=== PATIENT | female | born 1995 | race Caucasian/White ===

== ENCOUNTER → 2016-05-22 | Outpatient (CLI) | payer BC ==
[~2016-05-22] MED LIST: AMPH10CA3 PO; AZIT500T26 PO; ESCI10TA17 PO; HYDR-5688 PO; LEVOIUD INT UTER; METR-163 PO; OXYC1TAB3 PO
== END | disposition home or self-care (01) ==
LOC: C.RDSM 08:09
PROVIDERS: ATTEND Physical Medicine & Rehabilitation Sports Medicine
DX: S82.864D Nondisplaced Maisonneuve's fracture of right leg, subsequent encounter for closed fracture with routine healing (principal); X58.XXXD Exposure to other specified factors, subsequent encounter

== ENCOUNTER → 2016-05-24 | Day surgery (SDC) | payer BC ==
[2016-05-22 15:39] VITALS: Ht 175.3 cm; Wt 86.4 kg
[~2016-05-24] VITALS: Ht 175.3 cm; Wt 86.4 kg
[~2016-05-24] MED LIST changes: +ATROPINE SULFATE 0.1 MG/ML 5ML SYR IV PRN; +BUPIVACAINE/EPINEPHRINE 0.5% MPF 1:200,000 30 ML VIAL ONE; +CLINDAMYCIN 900MG IV SCH; +EpHEDrine SULFATE INJ 50 MG/ML AMP IV PRN; +FENTANYL CITRATE INJ 50 MCG/1 ML 2 ML VIAL IV PRN; +FENTANYL CITRATE INJ 50 MCG/1 ML 2 ML VIAL ONE; +HYDROCODONE/ACETAMOPHEN 5/325MG TAB ONE; +HYDROCODONE/ACETAMOPHEN 5/325MG TAB PO PRN; +LACTATED RINGER'S 1000ML 1,000 ML IV SCH; +LIDOCAINE HCL 2% 2 ML VIAL (20MG/ML) ONE; +LIDOCAINE/EPINEPHRINE 1% INJ 50 ML VIAL ONE; +MIDAZOLAM HCL 1 MG/ML 2ML VIAL ONE; +MoRPHine SULFATE 2 MG/ML CARP IV PRN; +MoRPHine SULFATE 4 MG/ML 1 ML CARP\\VIAL IV PRN; +ONDANSETRON INJ 2 MG/ML 2 ML VIAL IV PRN; +ONDANSETRON INJ 2 MG/ML 2 ML VIAL ONE; +PROPOFOL IV EMULSION 10 MG/ML 20 ML VIAL IV ONE; +SODIUM CHLORIDE 0.9% 1000ML 1,000 ML IV SCH
--- NOTE | 2016-05-24 06:47 | History & Physical Bridge Note ---
H&P Re-Evaluation Bridge Note: I have examined the patient, reviewed the History & Physical and in the interval since the performance of the History & Physical I have noted the following changes of clinical significance: No changes noted
--- NOTE | 2016-05-24 07:54 | [facility] Post Operative Brief Note ---
Immediate Operative Summary Operative Date May 24, 2016. Pre-Operative Diagnosis Right Ankle Retained Hardware Post-Operative Diagnosis Same Procedure(s) Performed Right Ankle Hardware Removal Surgeon Dr. Damon Vending Machine Servicer Surgeon(s) Dr. Yossi Rosas Estimated Blood Loss 1 ML Findings 2 screws medial malleolus Specimens None Drains 0 Anesthesia local with IV sedation Complication(s) None Disposition Recovery Room / PACU
--- NOTE | 2016-05-24 08:05 | Discharge Instructions-SurgCtr ---
Discharge Instructions Visit Reason for Visit: Right Ankle Retained Hardware Discharge Discharge Diagnosis / Problem: Hardware removal right ankle Discharge Goals Goal(s): Decrease discomfort, Improve function, Increase independence Activity Recommendations Activity Limitations: per Instructions/Follow-up section Anesthesia . Post Anesthesia Instructions: If you have had General Anesthesia or IV Sedation: * Do not drive today. * Resume driving when surgeon permits. * Do not make important decisions or sign legal documents today. * Call surgeon for: 1. Temperature elevations greater than 101 degrees F. 2. Uncontrollable pain. 3. Excessive bleeding. 4. Persistent nausea and vomiting. 5. Medication intolerance (nausea, vomiting or rash). * For nausea and vomiting use only clear liquids such as: tea, soda, bouillon until nausea subsides, then gradually increase diet as tolerated. * If you have any concerns or questions, call your surgeon's office. If physician is unavailable and it is an emergency, call 911 or go to the nearest emergency room. . Instructions / Follow-Up Instructions / Follow-Up POST-OPERATIVE INSTRUCTIONS DIET: - Resume previous diet. MEDICATIONS: - Please take your prescriptions as instructed at your pre-op appointment and/ or see medication discharge instructions listed. - If concerns develop, call your physician's office at . WOUND CARE : - Keep dressing clean, dry, intact. - Your surgical extremity may be discolored due to prepping agents used on the skin. A bluish-green tint is a normal variant and should not cause alarm. - You may remove the Operative Dressing on Post-Op day #2 - Apply Band-Aide to the wounds. Please do not use Bacitracin or other ointments under the bandage. The [place] is to be used to help control swelling after the dressing is removed. - You may shower on Post-Op day #3. Cover your wound with band-aids or plastic wrap. - Continue with Cam boot. EXERCISES: - Keep your foot elevated above your heart for the next 48 to 72 hours. - Weight bearing as tolerated with boot. - Please preform the following exercises 2-3 times daily: - Isometric Quadriceps Strengthening - Straight Leg Raises - Wiggle toes POST-OP: - Pre-op or enclosed a prescription for you to use post-operatively: - Franklin, a strong narcotic, is to be used only on an "as needed basis for pain. Use the pain medication the first night prior to going to bed , in order to ease any pain you have when the nerve block wears off. - If you have any adverse effects with the medications, please call our office. - If you develop a fever (101.5), Redness or Drainage from the surgical incision site, please call the office to arrange for an evaluation. - You may experience some low back pain due to muscle spasm from the either the anesthesia or positioning. If so, apply heating pad to area and take an analgesic if you have not already done so. - Do not drive a car or operate heavy machinery. FOLLOW-UP VISIT: - Follow up with Dr. Damon on 06/06/2016 at 12.45 pm. Call your doctor at [phone] if: - Temperature above 101 degrees - Pain not relieved by pain medicine ordered - There is increased drainage or redness from any incision - You have any unanswered questions, problems or concerns. Procedures Procedures Performed: Right Ankle Hardware Removal Pending Studies Studies pending at discharge: no Medical Emergencies . Who to Call and When: Medical Emergencies: If at any time you feel your situation is an emergency, please call 911 immediately. . Non-Emergent Contact Non-Emergency issues call your: Surgeon Call Non-Emergent contact if: you have a fever, your pain is not controlled, wound has increased drainage . . "Provider Documentation" section prepared by Jerel Rosas.
--- NOTE | 2016-05-24 08:08 | [facility] Post Operative Brief Note ---
Immediate Operative Summary Operative Date May 24, 2016. Pre-Operative Diagnosis Right Ankle Retained Hardware Post-Operative Diagnosis Same Procedure(s) Performed Right Ankle Hardware Removal Surgeon Dr. Damon Managing Partner [employer] Surgeon(s) Dr. Yossi Rosas Estimated Blood Loss 1 ML Findings 2 Medial malleolus cannulated screws Specimens None Complication(s) None Disposition PCU
--- NOTE | 2016-05-24 08:13 | OPERATIVE REPORT ---
DATE OF OPERATION: 05/24/2016 PREOPERATIVE DIAGNOSIS: Retained hardware right ankle status post open reduction internal fixation of an ankle fracture. POSTOPERATIVE DIAGNOSIS: Same. PROCEDURE: Removal of deep hardware, medial malleolus, right ankle. SURGEON: Armando Damon MD COMPOSITION WEATHERBOARD APPLIER: Jerel Joshi fellow. No PA available. ANESTHESIA: Local with IV sedation. INDICATIONS OF PROCEDURE: The patient is a 21-year-old female 1 year status post ORIF of a right ankle fracture. She previously had her syndesmotic screws removed and now would like to have her medial malleolar screws removed due to ongoing aching in the ankle. Radiographs showed no obvious problems in terms of arthritis, OCD lesion, syndesmotic or fracture healing. PROCEDURE IN DETAIL: Informed consent was obtained. The patient was identified as Julia Collier. She identified the operative site as the right ankle medial malleolus. I marked it with my initials. A preop surgical time out was performed. A preop dose of IV antibiotics was given. She was taken to the operating room, positioned supine on the operating room table. IV sedation was administered along with local anesthetic, approximately 10 mL of a 50:50 mixture of 1% lidocaine and 0.5% Marcaine, both containing epinephrine into the area of the surgical incision over the medial malleolus. A tourniquet was applied to the right calf below the peroneal nerve at the fibular neck, but not inflated during the case. The right leg was then prepped and draped in the usual sterile fashion. DVT prophylaxis is not indicated. The examination under anesthesia revealed no swelling, full range of motion. The lower 2-3 cm of the prior medial incision was opened with a knife and blunt dissection was performed down to the subcutaneous tissue and scar tissue. Electrocautery was used as needed to control bleeding. Fluoroscopic guidance was utilized throughout the procedure. The posterior tibial tendon was identified. After it had been identified, the posterior screw was identified and removed. Following that, further dissection anteriorly under fluoroscopic guidance showed the anterior screw. Guide pins were inserted to gauge orientation. The hex lean six sigma black belt of the screw was cleaned of soft tissue, screw driver/sales workers head was fully engaged, and the screw was then removed without difficulty. AP and lateral fluoroscopic images documented removal of the hardware and otherwise an unremarkable appearance to the ankle. The wound was copiously irrigated with sterile saline and then closed at the level of skin with 3-0 Prolene horizontal mattress stitches. A soft sterile dressing was applied along with a fracture. The patient was awakened from anesthesia without difficulty and taken to recovery room in stable condition. There were no specimens or complications. Counts were correct at the end of case. Blood loss was minimal. At the conclusion of the operation, I spoke to patient's mother and informed her of my findings. Postoperative instructions were given. She can weightbear as tolerated and the patient was given her hardware. I attest to the content of the Intraoperative Record and any orders documented therein. Any exceptio ns are noted below.
[2016-05-24 08:39] VITALS: BP 99/64; PULSE 57; TEMP 36.4; O2SAT 96
--- NOTE | 2016-05-24 08:50 | Anesthesiology Progress Note ---
Anesthesia Post Op Note Date & Time May 24, 2016 at 08:49 Vital Signs Pain Intensity: 7.0 Vital Signs Past 12 Hours Date Time Temp Pulse Resp B/P Pulse Ox O2 Delivery O2 Flow Rate FiO2 05/24/16 08:05 36.3 63 16 98/65 98 Room Air 05/24/16 06:28 36.5 79 16 114/77 97 Room Air Notes Mental Status: alert / awake / arousable, participated in evaluation Pt Amnestic to Procedure: Yes Nausea / Vomiting: adequately controlled Pain: adequately controlled Airway Patency, RR, SpO2: stable & adequate BP & HR: stable & adequate Hydration State: stable & adequate Anesthetic Complications: no major complications apparent
== END | disposition home or self-care (01) ==
LOC: X.SURG 06:19
PROVIDERS: ATTEND Physical Medicine & Rehabilitation Sports Medicine
DX: T84.84XA Pain due to internal orthopedic prosthetic devices, implants and grafts, initial encounter (principal); Y79.2 Prosthetic and other implants, materials and accessory orthopedic devices associated with adverse incidents

== ENCOUNTER 2016-07-09 18:07 | Emergency (ER) | payer BC, OTHER ==
[~2016-07-09] VITALS: Ht 175.3 cm; Wt 95.3 kg
[~2016-07-09 18:07] MED LIST changes: -ATROPINE SULFATE 0.1 MG/ML 5ML SYR IV PRN; -AZIT500T26 PO; -BUPIVACAINE/EPINEPHRINE 0.5% MPF 1:200,000 30 ML VIAL ONE; -CLINDAMYCIN 900MG IV SCH; -EpHEDrine SULFATE INJ 50 MG/ML AMP IV PRN; -FENTANYL CITRATE INJ 50 MCG/1 ML 2 ML VIAL IV PRN; -FENTANYL CITRATE INJ 50 MCG/1 ML 2 ML VIAL ONE; -HYDROCODONE/ACETAMOPHEN 5/325MG TAB ONE; -HYDROCODONE/ACETAMOPHEN 5/325MG TAB PO PRN; -LACTATED RINGER'S 1000ML 1,000 ML IV SCH; -LIDOCAINE HCL 2% 2 ML VIAL (20MG/ML) ONE; -LIDOCAINE/EPINEPHRINE 1% INJ 50 ML VIAL ONE; -METR-163 PO; -MIDAZOLAM HCL 1 MG/ML 2ML VIAL ONE; -MoRPHine SULFATE 2 MG/ML CARP IV PRN; -MoRPHine SULFATE 4 MG/ML 1 ML CARP\\VIAL IV PRN; -ONDANSETRON INJ 2 MG/ML 2 ML VIAL IV PRN; -ONDANSETRON INJ 2 MG/ML 2 ML VIAL ONE; -OXYC1TAB3 PO; -PROPOFOL IV EMULSION 10 MG/ML 20 ML VIAL IV ONE; -SODIUM CHLORIDE 0.9% 1000ML 1,000 ML IV SCH
[2016-07-09 18:11] VITALS: Ht 175.3 cm; Wt 95.3 kg
[2016-07-09] MEDS ORDERED: KETOROLAC TROMETHAMINE 30 MG/ML VIAL IV STA (18:21)
[2016-07-09] MEDS ORDERED: SODIUM CHLORIDE 0.9% 1000ML 1,000 ML IV STA (18:21)
[2016-07-09] MEDS ORDERED: ONDANSETRON INJ 2 MG/ML 2 ML VIAL IV STA (18:21)
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
[2016-07-09] MEDS ORDERED: METR-163 PO (18:41)
[2016-07-09 18:53] LABS: URINE APPEARANCE CLEAR (CLEAR); URINE BILIRUBIN NEG (NEG); URINE COLOR YELLOW; URINE EPITHELIAL CELL AUTO >30 /lpf (0-5); URINE NITRITE NEG (NEG); URINE PH 6.5 (4.5-7.5); URINE SPECIFIC GRAVITY 1.009 (1.000-1.030); UROBILINOGEN NEG (NEG)
[2016-07-09 18:55] LABS: BASO % 0.1 %; BASO ABS # 0.01 K/uL (0-0.2); COMPLETE YES; EOS % 0.7 %; HEMATOCRIT 39.4 % (37-47); IG% 0.2 %; LYMPH % 15.8 %; LYMPH ABS # 1.55 K/uL (1.2-3.4); MEAN CELL VOLUME 88.9 fL (80-100); MEAN CORPUSCULAR HEMOGLOBIN 30.7 pg (25-34); MEAN CORPUSCULAR HGB CONC 34.5 g/dl (32-36); MEAN PLATELET VOLUME 10.4 fL (7.4-10.4); MONO % 6.7 %; NEUT % 76.5 %; PLATELET COUNT 176 K/uL (130-400); RED BLOOD COUNT 4.43 M/uL (4.2-5.4); WHITE BLOOD COUNT 9.79 K/uL (4.8-10.8)
[2016-07-09 18:58] LABS: MANUAL MICROSCOPIC REQUIRED? NO; REVIEW REQ? NO
--- NOTE | 2016-07-09 19:05 | DIAGNOSTIC IMAGING REPORT ---
CT SCAN OF THE BRAIN WITHOUT IV CONTRAST CLINICAL HISTORY: Headache. COMPARISON STUDY: CT of the brain dated 09/05/2015. TECHNIQUE: Unenhanced axial CT scan of the brain is performed from the vertex to the skull base. Automated dose control exposure was utilized. CT DOSE: 537.48 mGy.cm FINDINGS: Brain parenchyma: The brain parenchyma is normal in appearance. There is no hemorrhage, mass effect, or evidence of acute territorial ischemia by CT criteria. Brunner-white matter is preserved. No extra-axial fluid collection is seen. Ventricles, sulci, cisterns: Normal in configuration. Intracranial vasculature: The visualized intracranial vasculature at the skull base is normal in appearance. Calvarium: Unremarkable. Sinuses and mastoids: Moderate mucosal thickening is seen in the sphenoid sinuses. Mild to moderate mucosal thickening is noted in the right posterior ethmoid sinuses. The mastoid air cells are well pneumatized. There is prominence of adenoidal soft tissues. Orbits: The bony orbits are grossly intact. IMPRESSION: 1. No acute intracranial abnormality. 2. There are prominent adenoidal soft tissues. Correlation with direct visualization is recommended. Electronically signed by: Lj Briseno M.D. 07/09/2016 7:03 PM Dictated Date/Time: 07/09/2016 7:01 PM
[2016-07-09 19:12] LABS: ALT/SGPT 20 U/L (12-78); AST/SGOT 6 U/L (15-37); BLOOD UREA NITROGEN 12 mg/dl (7-18); BUN/CREATININE RATIO 13.9 (10-20); CALCIUM 9.1 mg/dl (8.5-10.1); CARBON DIOXIDE 26 mmol/L (21-32); CHLORIDE 106 mmol/L (98-107); CREATININE 0.86 mg/dl (0.60-1.20); GLUCOSE 101 mg/dl (70-99); POTASSIUM 3.8 mmol/L (3.5-5.1); SODIUM 142 mmol/L (136-145)
[2016-07-09 19:15] LABS: ALKALINE PHOSPHATASE 56 U/L (45-117); C-REACTIVE PROTEIN 0.65 mg/dl (0-0.29)
--- NOTE | 2016-07-09 19:31 | DIAGNOSTIC IMAGING REPORT ---
TWO VIEW CHEST CLINICAL HISTORY: Fever. FINDINGS: PA and lateral chest radiographs are compared to study dated 03/08/2014. The cardiomediastinal silhouette is unremarkable. The lungs and pleural spaces are clear. There is no pneumothorax. The bony thorax appears intact. IMPRESSION: No active disease in the chest. Electronically signed by: Lj Briseno M.D. 07/09/2016 7:29 PM Dictated Date/Time: 07/09/2016 7:29 PM
--- NOTE | 2016-07-09 19:32 | DIAGNOSTIC IMAGING REPORT ---
SOFT TISSUES NECK 2 VIEWS CLINICAL HISTORY: Sore throat. FINDINGS: AP and lateral views of the soft tissues the neck are correlated with CT scan of the cervical spine dated 09/05/2015. The soft tissues of the neck are normal in appearance. The airway is widely patent. The prevertebral/retropharyngeal soft tissues are within normal limits. The epiglottic shadow is normal. No radiodense foreign body is identified. The cervical spine is normal as imaged. Partially imaged apical lung parenchyma appears clear. IMPRESSION: Unremarkable radiographic assessment of the soft tissues of the neck. Electronically signed by: Lj Briseno M.D. 07/09/2016 7:31 PM Dictated Date/Time: 07/09/2016 7:30 PM
[2016-07-09 19:33] LABS: PREG INTERNAL NEGATIVE QC NEG CLEAR BACKGROUND; PREG INTERNAL POSITIVE QC POS CONTROL LINE
[2016-07-09] MEDS ORDERED: CEFTRIAXONE SOD INJ 1 GM ADDVIAL IV STA (19:36)
[2016-07-09] MEDS ORDERED: MoRPHine SULFATE 4 MG/ML 1 ML CARP\\VIAL IV PRN (19:45)
[2016-07-09] MEDS ORDERED: DEXAMETHASONE SOD INJ 10 MG/ML VIAL IV ONE (19:45)
[2016-07-09] MEDS ORDERED: OXYC1TAB3 PO (20:06)
[2016-07-09] MEDS ORDERED: AZIT500T26 PO (20:06)
[2016-07-09 20:16] VITALS: BP 132/82; PULSE 71; O2SAT 100
[2016-07-09 20:33] VITALS: TEMP 36.8
== END 2016-07-09 20:33 | disposition home or self-care (01) ==
LOC: C.EDB 18:08 → C.EDA 20:33
DX: R50.9 Fever, unspecified (principal); J03.90 Acute tonsillitis, unspecified; R51 Headache; F90.0 Attention-deficit hyperactivity disorder, predominantly inattentive type

== ENCOUNTER → 2016-08-03 | Outpatient (CLI) | payer OTHER ==
[~2016-08-03] MED LIST changes: +AZIT500T26 PO; -HYDR-5688 PO; +METR-163 PO; +OXYC1TAB3 PO
== END | disposition home or self-care (01) ==
LOC: C.LAB 02:11
DX: Z02.83 Encounter for blood-alcohol and blood-drug test (principal)

== ENCOUNTER → 2016-11-20 | Outpatient (CLI) | payer BC, OTHER ==
--- NOTE | 2016-11-20 09:49 | DIAGNOSTIC IMAGING REPORT ---
LEFT SHOULDER MIN 2 VIEWS CLINICAL HISTORY: LEFT SHOULDER PAIN pain COMPARISON: None. DISCUSSION: The bones and joint spaces appear intact. There is no evidence of fracture, dislocation or bony disease. There is no evidence for soft tissue swelling. IMPRESSION: Negative study. The above report was generated using voice recognition software. It may contain grammatical, syntax or spelling errors. Electronically signed by: Tal Flynn M.D. 11/20/2016 9:48 AM Dictated Date/Time: 11/20/2016 9:47 AM
== END | disposition home or self-care (01) ==
LOC: C.RDSM 09:34
PROVIDERS: ATTEND Physician Assistant
DX: R52 Pain, unspecified (principal)

== ENCOUNTER 2017-02-11 03:26 | Emergency (ER) | payer BC ==
[~2017-02-11] VITALS: Ht 175.3 cm; Wt 96.5 kg
[~2017-02-11 03:26] MED LIST changes: -AZIT500T26 PO; -OXYC1TAB3 PO
[2017-02-11 03:30] VITALS: TEMP 36.9; Ht 175.3 cm; Wt 96.5 kg
[2017-02-11] MEDS ORDERED: ONDANSETRON INJ 2 MG/ML 2 ML VIAL IV STA (03:45)
[2017-02-11] MEDS ORDERED: SODIUM CHLORIDE 0.9% 1000ML 1,000 ML IV ONE (03:45)
[2017-02-11] MEDS ORDERED: KETOROLAC TROMETHAMINE 30 MG/ML VIAL IV STA (03:45)
[2017-02-11 03:56] LABS: BASO % 0.3 %; BASO ABS # 0.02 K/uL (0-0.2); COMPLETE YES; EOS % 2.6 %; HEMATOCRIT 41.3 % (37-47); IG% 0.2 %; LYMPH % 48.4 %; LYMPH ABS # 2.96 K/uL (1.2-3.4); MEAN CELL VOLUME 87.9 fL (80-100); MEAN CORPUSCULAR HEMOGLOBIN 30.2 pg (25-34); MEAN CORPUSCULAR HGB CONC 34.4 g/dl (32-36); MEAN PLATELET VOLUME 10.1 fL (7.4-10.4); NEUT % 41.5 %; PLATELET COUNT 183 K/uL (130-400); WHITE BLOOD COUNT 6.11 K/uL (4.8-10.8)
[2017-02-11] MEDS ORDERED: DiphenhydrAMINE HCL 50 MG/ML VIAL IV STA (04:04)
[2017-02-11] MEDS ORDERED: DiphenhydrAMINE HCL 50 MG/ML VIAL ONE (04:05)
[2017-02-11 04:13] LABS: BUN/CREATININE RATIO 10.9 (10-20); CALCIUM 8.9 mg/dl (8.5-10.1); CREATININE 0.89 mg/dl (0.60-1.20); POTASSIUM 3.4 mmol/L (3.5-5.1)
[2017-02-11 04:16] LABS: ALB/GLOB RATIO 1.3 (0.9-2)
[2017-02-11 04:28] LABS: URINE APPEARANCE CLOUDY (CLEAR); URINE BILIRUBIN NEG (NEG); URINE COLOR YELLOW; URINE EPITHELIAL CELL AUTO >30 /lpf (0-5); URINE NITRITE NEG (NEG); URINE SPECIFIC GRAVITY 1.028 (1.000-1.030); UROBILINOGEN NEG (NEG); ZZUR CULT IF INDIC CLEAN CATCH NO
[2017-02-11 04:31] LABS: MANUAL MICROSCOPIC REQUIRED? NO; REVIEW REQ? YES
[2017-02-11 04:56] LABS: BENZODIAZEPINE, URINE NEG (NEG); COCAINE,URINE NEG (NEG); PHENCYCLIDINE, URINE NEG (NEG)
[2017-02-11 05:32] VITALS: BP 116/67; PULSE 53; O2SAT 97
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
== END 2017-02-11 05:27 | disposition home or self-care (01) ==
LOC: C.EDB 03:27 → C.EDA 05:27
DX: R10.30 Lower abdominal pain, unspecified (principal); F12.90 Cannabis use, unspecified, uncomplicated; Z97.5 Presence of (intrauterine) contraceptive device; F90.9 Attention-deficit hyperactivity disorder, unspecified type; F32.9 Major depressive disorder, single episode, unspecified; Z83.3 Family history of diabetes mellitus; Z80.9 Family history of malignant neoplasm, unspecified; Z79.899 Other long term (current) drug therapy

== ENCOUNTER → 2017-02-27 | Outpatient (CLI) | payer BC ==
[~2017-02-27] MED LIST changes: -METR-163 PO
--- NOTE | 2017-02-27 11:59 | DIAGNOSTIC IMAGING REPORT ---
EXAMINATION: PELVIC ULTRASOUND (transabdominal and endovaginal scanning) CLINICAL HISTORY: PELVIC PAIN COMPARISON STUDY: 04/05/2016 FINDINGS: The uterus measured 6.4 x 2.2 x 3.9 cm. And IUD is visualized within the uterine cavity.. The endometrial stripe measured 4 mm. The right ovary measured 29 x 14 x 29 mm. There is a dominant 15 mm follicle. The left ovary measured 28 x 8 x 17 mm.. There is no ultrasonographic evidence of ovarian torsion. It should be noted that ovarian torsion can be present with normal Doppler ultrasonographic findings. There was no evidence of pathologic free pelvic fluid. IMPRESSION: 1. An IUD is visualized within the endometrium 2. Normal pelvic ultrasound Electronically signed by: Myron Varela M.D. 02/27/2017 11:58 AM Dictated Date/Time: 02/27/2017 11:56 AM
== END | disposition home or self-care (01) ==
LOC: C.ULTRBC 10:53
PROVIDERS: ATTEND Family Medicine
DX: R10.2 Pelvic and perineal pain (principal); Z97.5 Presence of (intrauterine) contraceptive device

== ENCOUNTER 2018-05-07 15:19 | Inpatient (IN) ==
[2018-05-07 16:58] LABS: Appearance Urine Clear (Clear); Bacteria Urine Automated Negative (Negative); Bilirubin Urine Negative (Negative); Color Urine Yellow; Epithelial Cell Urine Auto >30 /lpf (0-5); Glucose Urine UA Negative (Negative); Ketones Urine Negative (Negative); Leukocyte Esterase Urine Negative (Negative); Nitrite Urine Negative (Negative); Protein Urine Negative (Negative); Specific Gravity Urine 1.012 (1.000-1.030); Urobilinogen Urine Negative (Negative)
[2018-05-07 17:19] LABS: Amphetamines+Metham, Urine Neg (Neg); Barbiturates, Urine Neg (Neg); Benzodiazepine, Urine Neg (Neg); Cocaine, Urine Neg (Neg); MDMA (Ecstacy), Urine Pos (Neg); Methadone, Urine Neg (Neg); Opiate, Urine Neg (Neg); Phencyclidine, Urine Neg (Neg)
[2018-05-07 17:44] LABS: Basophils # (auto) 0.01 K/uL (0-0.2); Basophils % (auto) 0.2 %; Eosinophils # (auto) 0.04 K/uL (0-0.5); Eosinophils % (auto) 0.8 %; Hematocrit (blood only) 39.1 % (37-47); Hemoglobin 13.6 g/dL (12.0-16.0); Immature Granulocytes # (auto) 0.01 K/uL (0.00-0.02); Immature Granulocytes % (auto) 0.2 %; Lymphocytes % (auto) 19.4 %; Mean Corpuscular Hgb Conc 34.8 g/dL (32-36); Mean Corpuscular Volume 89.9 fL (80-100); Mean Platelet Volume 10.1 fL (7.4-10.4); Monocytes # (auto) 0.36 K/uL (0.11-0.59); Neutrophils # (auto) 3.73 K/uL (1.4-6.5); Neutrophils % (auto) 72.4 %; Platelet Count 173 K/uL (130-400); RDW Coefficient of Variation 12.7 % (11.5-14.5); RDW Standard Deviation 41.5 fL (36.4-46.3); Red Blood Count 4.35 M/uL (4.2-5.4); White Blood Count 5.15 K/uL (4.8-10.8)
[2018-05-07 17:56] LABS: Albumin Level 3.9 gm/dl (3.4-5.0); BUN Creatinine Ratio 11.1 (10-20); Calcium 8.7 mg/dl (8.5-10.1); Creatinine Clr Calc Pharmacy 113.5 ml/min; Est GFR (African American) 96.6; Est GFR (Non-African American) 83.4; Potassium 3.6 mmol/L (3.5-5.1)
[2018-05-07 18:02] LABS: Acetaminophen < 2 ug/ml (10-30); Salicylate < 1.7 mg/dl (2.8-20)
[2018-05-07 18:07] LABS: Albumin Globulin Ratio 1.2 (0.9-2); Bilirubin,Total 0.4 mg/dl (0.2-1); Globulin 3.3 gm/dl (2.5-4.0); Total Protein 7.2 gm/dl (6.4-8.2)
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
[2018-05-07] MEDS ORDERED: SODIUM CHLORIDE 0.65% NA SOLN 45 ML (OCEAN) PRN (20:20)
[2018-05-07] MEDS ORDERED: BISMUTH SUBSALICYLATE PER ML OMNICELL CHARGE PO PRN (20:20)
[2018-05-07] MEDS ORDERED: ALUMINUM/MAGNESIUM SUSP 30 ML UDC PO PRN (20:20)
[2018-05-07] MEDS ORDERED: MAGNESIUM HYDROXIDE SUSP 30 ML UDC PO PRN (20:20)
[2018-05-07] MEDS ORDERED: ACETAMINOPHEN 325 MG TAB PO PRN (20:20)
[2018-05-07 22:20] VITALS: O2SAT 98
[2018-05-08] MEDS ORDERED: INFLUENZA ADMINISTRATION CHARGE ONE (08:00)
[2018-05-08] MEDS ORDERED: INFLUENZA VIRUS QUAD VACCINE 0.5 ML SYR IM ONE (08:00)
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
[2018-05-08] MEDS: ESCITALOPRAM OXALATE 10 MG TAB PO SCH (11:03)
[2018-05-09] MEDS: ESCITALOPRAM OXALATE 10 MG TAB PO SCH (08:53)
--- NOTE | 2018-05-09 11:09 | Psychiatric Progress Note ---
Date of Service May 09, 2018 Impression / Recommendations Impression 23 yo CF with reported h/o depression and anxiety admitted for voluntarily after reported attempt with OD on Ambien. This is in the context of non- compliance with medications, relational strain with mother and school stressors. Patient seems to be with mild improvement in mood today and has been active on unit and group. Seems to be working on coping skills as she admits taking pills was an attempt at her life. Will set up family meeting tomorrow. Will continue treatment for stabilization. 05/09/18: mild improved mood. Family meeting schedule for Saturday05/10/18. Increase Lexapro to 20mg with first dose on 05/10/18. Patient denies Si/Hi/aVH (1) Major depression, single episode: - Increase Lexapro to 20mg daily for depression -Group milieu therapy Inventory Assets Strengths: fair insight, future oriented Needs: medications and therapy Risk Factors Assessment Male: No : Yes Do You Have Access To A Gun?: No Health Problems: No Mental Health Diagnoses: Yes Substance Use Disorders: No Previous Attempt: No Family History of Suicide: No Previous Psychiatric Hospitalization: No Hopelessness: No Smoker: No Protective Factors Assessment Hoahaoism Beliefs: No : No Responsible for Young Children: No Employed: No Stable Relationships: Yes Supportive Family: Yes Absence of Any Risk Factors Above: Yes (no current SI, not homeless, access to care) Review of Systems Sleep Information Total Hours of Sleep: 6.25 Sleep Comments: requested and received vistaril X2. Meal Information Percent Meal Consumed - Breakfast: 70 Percent Meal Consumed - Lunch: 100 Percent Meal Consumed - Dinner: 100 Subjective Subjective Patient reports she has accepted that she did have SI when she took the pills and states this has allowed to to process her feelings and depression. Reports her mood is "better today". States her parents brought her clothes yesterday and will visit again today. States they will have a family meeting on Saturday. Reports desire to improve relations with mom and find better ways to cope with stressors. Reports groups have helped. Denies SI/HI/AVH and reports regret for her actions. Patient was seen & assessed and interval progress reviewed with Treatment Team and Nursing. Physical Exam Psychiatric A+Ox3, euthymic affect Apperance: appropriately dressed Eye Contact: good eye contact Motor Behavior: no abnormal motor movements Speech: normal rate/rhythm/volume of speech Affect: euthymic affect Mood: no depressed mood Thought Process: linear/logical thought process Thought Content: not paranoid and no delusions Suicidal Thoughts: denies suicidal thoughts Homicidal Thoughts: denies homicidal thoughts Hallucinations: no auditory hallucinations and no visual hallucinations Cognition: recent memory grossly intact and remote memory grossly intact Estimated Intelligence: average estimated intelligence Insight: + fair insight Judgement: + fair judgement Vital Signs (Past 24 Hours) Last Vital Signs Temp 36.9 C 05/09/18 06:00 Pulse 73 05/09/18 06:00 Resp 16 05/09/18 06:00 BP 98/66 L 05/09/18 06:00 Pulse Ox 98 05/07/18 22:11 Results & Data Current Inpatient Medications Current Inpatient Medications: Current Inpatient Medications Acetaminophen (Tylenol) 650 mg PO Q4H PRN PRN Reason: Headache or Minor Fever Stop: 06/06/18 20:19 Al Hydrox/Mg Hydrox/Simethicone (Maalox) 30 ml PO Q4H PRN PRN Reason: GI Upset Stop: 06/06/18 20:19 Bismuth Subsalicylate (Kaopectate) 15 ml PO PRN PRN PRN Reason: Loose Stool Stop: 06/06/18 20:19 Escitalopram Oxalate (Lexapro) 20 mg PO QAM GIOVANNA Stop: 06/09/18 08:59 Hydroxyzine HCl (Vistaril) 25 mg PO Q4H PRN PRN Reason: Anxiety Stop: 06/06/18 20:19 Hydroxyzine HCl (Vistaril) 50 mg PO HSZ PRN PRN Reason: Insomnia Stop: 06/06/18 20:19 Last Admin: 05/08/18 21:52 Dose: 50 mg Magnesium Hydroxide (Milk Of Magnesia) 30 ml PO DAILY PRN PRN Reason: Heartburn Stop: 06/06/18 20:19 Sodium Chloride ([place] Nasal) 1 - 2 sprays NA PRN PRN PRN Reason: Nasal Dryness/Congestion Stop: 06/06/18 20:19 Post Discharge Appointments Primary Care Physician Name Of Family Doctor: Dr Judith Lloyd - [facility] Primary Care Provider Appointment Comment: [phone], [place] [address] Psychiatrist Name of Psychiatrist: Lila Johns Psychiatrist's Date of Appointment with Psychiatrist: 05/16/18 Time of Appointment with Psychiatrist: 3:30pm - come 15min early, bring insurance card Psychiatric Appointment Comment: [address] [place] [address] Therapist Name of Therapist: [facility] - Lisa Esteves Therapist's Date of Therapist Appointment: 05/14/18 Time of Therapist Appointment: 3om - come 15min early with insurance card Therapy Appointment Comment: [address] [facility] [address], [place] [address] Prep Person Name of Prep Person: Kristen Contact Information Discharge Discharge Address: [address] [place] [address], [place] [address] CPT Code CPT Code 77887 _ (1) Major depression, single episode Active/Remission status: currently active Major depression episode severity: severe Psychotic features: without psychotic features Qualified Code(s): F32.2 - Major depressive disorder, single episode, severe without psychotic features
[2018-05-10 06:48] VITALS: BP 114/78; TEMP 98.2
--- NOTE | 2018-05-10 07:20 | Psychiatric Progress Note ---
Date of Service May 10, 2018 Impression / Recommendations Impression 23 yo CF with reported h/o depression and anxiety admitted for voluntarily after reported attempt with OD on Ambien. This is in the context of non- compliance with medications, relational strain with mother and school stressors. Patient seems to be with mild improvement in mood today and has been active on unit and group. Seems to be working on coping skills as she admits taking pills was an attempt at her life. Will set up family meeting tomorrow. Will continue treatment for stabilization. 05/09/18: mild improved mood. Family meeting schedule for Saturday05/10/18. Increase Lexapro to 20mg with first dose on 05/10/18. Patient denies Si/Hi/aVH (1) Major depression, single episode: - Increase Lexapro to 20mg daily for depression -Group milieu therapy Inventory Assets Strengths: fair insight, future oriented Needs: medications and therapy Risk Factors Assessment Male: No : Yes Do You Have Access To A Gun?: No Health Problems: No Mental Health Diagnoses: Yes Substance Use Disorders: No Previous Attempt: No Family History of Suicide: No Previous Psychiatric Hospitalization: No Hopelessness: No Smoker: No Protective Factors Assessment Jehovah'S Witness Beliefs: No : No Responsible for Young Children: No Employed: No Stable Relationships: Yes Supportive Family: Yes Absence of Any Risk Factors Above: Yes (no current SI, not homeless, access to care) Interval History Chief Complaint "[]". Review of Systems Sleep Information Total Hours of Sleep: 6.75 Sleep Comments: received a prn hs dose of vistaril Meal Information Percent Meal Consumed - Breakfast: 70 Percent Meal Consumed - Lunch: 30 Percent Meal Consumed - Dinner: 85 Subjective Subjective Patient was seen & assessed and interval progress reviewed with Nursing. Staff report she is very anxious about her family meeting with parents today, Physical Exam Vital Signs (Past 24 Hours) Last Vital Signs Temp 36.8 C 05/10/18 06:47 Pulse 97 H 05/10/18 06:48 Resp 16 05/10/18 06:47 BP 114/78 05/10/18 06:48 Pulse Ox 98 05/07/18 22:11 Results & Data Current Inpatient Medications Current Inpatient Medications: Current Inpatient Medications Acetaminophen (Tylenol) 650 mg PO Q4H PRN PRN Reason: Headache or Minor Fever Stop: 06/06/18 20:19 Al Hydrox/Mg Hydrox/Simethicone (Maalox) 30 ml PO Q4H PRN PRN Reason: GI Upset Stop: 06/06/18 20:19 Bismuth Subsalicylate (Kaopectate) 15 ml PO PRN PRN PRN Reason: Loose Stool Stop: 06/06/18 20:19 Escitalopram Oxalate (Lexapro) 20 mg PO QAM GIOVANNA Stop: 06/09/18 08:59 Hydroxyzine HCl (Vistaril) 25 mg PO Q4H PRN PRN Reason: Anxiety Stop: 06/06/18 20:19 Hydroxyzine HCl (Vistaril) 50 mg PO HSZ PRN PRN Reason: Insomnia Stop: 06/06/18 20:19 Last Admin: 05/09/18 21:24 Dose: 50 mg Magnesium Hydroxide (Milk Of Magnesia) 30 ml PO DAILY PRN PRN Reason: Heartburn Stop: 06/06/18 20:19 Sodium Chloride (Leona Nasal) 1 - 2 sprays NA PRN PRN PRN Reason: Nasal Dryness/Congestion Stop: 06/06/18 20:19 Post Discharge Appointments Primary Care Physician Name Of Family Doctor: Dr Judith Lloyd - [facility] Primary Care Provider Appointment Comment: [id number], [place] [address] Psychiatrist Name of Psychiatrist: Lila Johns Psychiatrist's Date of Appointment with Psychiatrist: 05/16/18 Time of Appointment with Psychiatrist: 3:30pm - come 15min early, bring insurance card Psychiatric Appointment Comment: [address] [place] [address] Therapist Name of Therapist: [facility] - Lisa Esteves Therapist's Date of Therapist Appointment: 05/14/18 Time of Therapist Appointment: 3om - come 15min early with insurance card Therapy Appointment Comment: [address] [place] [address] Helicopter Officer Name of Helicopter Officer: Denies Contact Information Discharge Discharge Address: [address] [place] [address] [place] [id number] CPT Code CPT Code 15821 [id number] _ (1) Major depression, single episode Active/Remission status: currently active Major depression episode severity: severe Psychotic features: without psychotic features Qualified Code(s): F32.2 - Major depressive disorder, single episode, severe without psychotic features
[2018-05-10] MEDS ORDERED: ESCITALOPRAM OXALATE 20 MG TAB PO SCH (09:00)
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
[2018-05-10 11:20] VITALS: PULSE 73
[2018-05-11 15:15] LABS: MDA negative; MDEA negative; MDMA (Ecstasy) Urine, Confirm negative; Marijuana Quant, GCMS Urine 67 NG/ML (CUTOFF=5)
== END 2018-05-10 12:20 | disposition home or self-care (01) | DRG 885 ==
LOC: ED 15:19 → 3S 20:20